=== PATIENT | male | born 1965 | race Caucasian/White ===

== ENCOUNTER 2020-01-03 07:55 | Emergency (ER) | payer SELFPAY ==
[2020-01-03] MEDS ORDERED: Morphine 4 MG/ML VIAL ONE (08:23)
[2020-01-03] MEDS ORDERED: Ondansetron PF 4 MG/2 ML Vial ONE (08:31)
[2020-01-03 09:06] LABS: ALT (SGPT) 12 U/L (8-55); AST (SGOT) 15 U/L (5-34); Alkaline Phosphatase 94 U/L (40-110); Anion Gap 17 mmol/L (10-20); BUN (Urea Nitrogen) 11 mg/dL (8.4-25.7); Bilirubin, Total 0.3 mg/dL (0.2-1.2); Calc. Creatinine Clearance 0 mL/min (70-130); Calcium 8.3 mg/dL (7.8-10.44); Carbon Dioxide 20 mmol/L (22-29); Chloride 108 mmol/L (98-107); Estimated GFR-MDRD 81; Globulin 2.6 g/dL (2.4-3.5); Glucose 149 mg/dL (70-105); Lipase 13 U/L (8-78); Potassium 4.4 mmol/L (3.5-5.1); Protein, Total 6.6 g/dL (6.0-8.3); Sodium 141 mmol/L (136-145)
[2020-01-03] MEDS ORDERED: Ketorolac Tromethamine 30 MG/ML VIAL ONE (09:22)
[2020-01-03 09:23] LABS: CK (CPK) 72 U/L (30-200); CRP (Inflammatory) Less than 0.50 mg/dL (= or < 0.5)
[2020-01-03] MEDS ORDERED: Sodium Chloride 0.9% 1,000 ML ONE (09:25)
[2020-01-03 09:49] LABS: #Basophils 0.1 thou/uL (0.0-0.2); #Monocytes 0.5 thou/uL (0.11-0.59); #Neutrophils 11.3 thou/uL (1.40-6.50); %Basophils 0.9 % (0.0-1.0); %Eosinophils 0.2 % (0.0-10.0); %Monocytes 3.8 % (0.0-10.0); %Neutrophils 81.1 % (42.0-75.0); Hemoglobin 16.5 g/dL (14.0-18.0); MDiff Complete? YES; Mean Corpuscular Volume 90.4 fL (78.0-98.0); Mean Platelet Volume 6.8 fL (7.4-10.4); Platelet Clumps SLIGHT; Platelet Count 177 thou/uL (130-400); Platelet Morphology Comment Appears Adequate; RBC Distribution Width 12.4 % (11.5-14.5); RBC Morphology Normal; Red Blood Cell (RBC) Count 5.71 mill/uL (4.70-6.10); White Blood Cell (WBC) Count 13.9 thou/uL (4.8-10.8)
[2020-01-03] MEDS ORDERED: Tamsulosin HCl 0.4 MG CAP ONE (10:31)
[2020-01-03 10:49] LABS: Bilirubin Negative (Negative); Blood, Urine Large (Negative); Clarity Clear (Clear); Glucose, Urine (Dipstick) Negative (Negative); Leukocyte Negative (Negative); Nitrite Negative (Negative); Protein, Urine (Dipstick) Negative (Neg-Trace); Urobilinogen 0.2 mg/dL (Less than 2)
[2020-01-03 10:59] LABS: Bacteria/HPF Rare-Few HPF (None Seen); RBC/HPF 0-3 HPF (0-3); Squamous Epithelial 0-3 HPF (0-3); WBC/HPF None Seen HPF (0-3)
[2020-01-03 11:00] LABS: Calcium Oxalate Crystals 1+ HPF (None Seen)
--- NOTE | 2020-01-03 11:28 | CT ---
ABDOMEN AND PELVIC CT SCAN WITH IV CONTRAST: HISTORY: Left lower quadrant pain. FINDINGS: The lung bases are clear. Small hiatal hernia. Liver, gallbladder, pancreas, spleen, and adrenal gl ands are unremarkable. Slight dilatation of the left upper renal collecting system and left ureter d own to a very tiny, approximately 1 x 2 mm calculus near the ureterovesicular junction. Small left r enal hypodensity, statistically a small cyst. Small fat-containing left inguinal hernia. Colonic di verticulosis without acute diverticulitis. IMPRESSION: Small, approximately 1 x 2 mm diameter minimally obstructing distal left ureteral calculus with some very mild proximal hydroureteral nephrosis. Other findings as above. POS: [facility]
== END 2020-01-03 11:30 | disposition home or self-care (01) ==
LOC: MADERS 07:55
DX: N13.2 Hydronephrosis with renal and ureteral calculous obstruction (principal); F17.210 Nicotine dependence, cigarettes, uncomplicated
CPT/HCPCS: 74177; 80053; 81003; 81015; 82150; 82550; 83690; 84484; 85025; 86140; 93005; 96361; 96374; 96375; J1885; J2270; J2405; J7050